=== PATIENT | female | born 2000 | race Caucasian/White ===

== ENCOUNTER 2018-04-23 13:47 | Emergency (ER) | payer BC ==
[~2018-04-23] VITALS: Ht 154.9 cm; Wt 45.5 kg
[2018-04-23 13:58] VITALS: Ht 154.9 cm; Wt 45.5 kg
[2018-04-23 15:53] LABS: microscopic required? NO
[2018-04-23 16:01] LABS: UA SPECIFIC GRAVITY 1.025 (1.005-1.035); urine erythrocyte NEGATIVE (NEGATIVE)
[2018-04-23 18:01] VITALS: BP 112/61
== END 2018-04-23 18:01 | disposition home or self-care (01) ==
LOC: ED 13:47
PROVIDERS: Emergency Medicine
DX: N83.202 Unspecified ovarian cyst, left side (principal); F17.210 Nicotine dependence, cigarettes, uncomplicated
CPT/HCPCS: J1885